=== PATIENT | male | born 1950 | race Caucasian/White ===

== ENCOUNTER 2017-04-08 22:42 | Emergency (ER) | payer MEDICARE, OTHER ==
[~2017-04-08] VITALS: Ht 182.9 cm; Wt 81.6 kg
--- NOTE | 2017-04-08 23:10 | NUR ---
Dr. Stewart at bedside for MSE, awaiting further orders.
[2017-04-08] MEDS ORDERED: FLUORESCEIN SODIUM 1 MG STRIP ONE (23:25)
[2017-04-08] MEDS ORDERED: TETRACAINE HCL 0.5% OPHT DROP 2 ML BOTTLE ONE (23:25)
[2017-04-08] MEDS ORDERED: HYDROCODONE/APAP 5-325MG TABLET PO ONE (23:30)
[2017-04-08] MEDS ORDERED: CIPROFLOXACIN 0.3% OPHT DROP 2.5 ML BOTTLE OP ONE (23:30)
[2017-04-08] MEDS ORDERED: TETRACAINE HCL 0.5% OPHT DROP 2 ML BOTTLE OP ONE (23:45)
[2017-04-08] MEDS ORDERED: FLUORESCEIN SODIUM 1 MG STRIP OP ONE (23:45)
--- NOTE | 2017-04-08 23:50 | NUR ---
Pt stable for discharge per MD. Pt given ACI. Pt verbalized understanding of dc instructions. Pt ambulated out of ER with steady gait and ride home.
[2017-04-08 23:55] VITALS: BP 156/80
[2017-04-09] MEDS ORDERED: CIPROFLOXACIN 0.3% OPHT DROP 2.5 ML BOTTLE ONE
[2017-04-09] MEDS ORDERED: HYDROCODONE/APAP 5-325MG TABLET ONE
== END 2017-04-08 23:56 | disposition home or self-care (01) ==
LOC: ER 22:43
DX: S05.02XA Injury of conjunctiva and corneal abrasion without foreign body, left eye, initial encounter (principal); X58.XXXA Exposure to other specified factors, initial encounter; Y93.89 Activity, other specified; Y92.89 Other specified places as the place of occurrence of the external cause; Y99.8 Other external cause status
CPT/HCPCS: 99283; A4663

== ENCOUNTER 2020-09-20 08:52 | Emergency (ER) | payer OTHER ==
[~2020-09-20] VITALS: Ht 188 cm; Wt 83.9 kg
[2020-09-20] MEDS ORDERED: MUPIROCIN 2% OINT 22 GM TUBE TP ONE (09:15)
[2020-09-20] MEDS ORDERED: SULFAMETH/TRIMETH 800/160 MG TABLET PO ONE (09:15)
[2020-09-20] MEDS ORDERED: SULF1TAB48 PO (09:17)
[2020-09-20] MEDS ORDERED: MUPI22OI2 (09:19)
[2020-09-20] MEDS ORDERED: MUPIROCIN 2% OINT 22 GM TUBE ONE (09:35)
[2020-09-20] MEDS ORDERED: SULFAMETH/TRIMETH 800/160 MG TABLET ONE (09:35)
--- NOTE | 2020-09-20 09:55 | NUR ---
MEDICATION GIVEN ORDERED. OINTMENT APPLIED ON WOUND ORDERED AND COVERED WITH A NON ADHERING STERILE GAUZE. DC, RX AND FOLLOW UP INSTRUCTIONS GIVEN AND EXPLAINED TO PATIENT WHO STATES HE UNDERSTANDS ALL INSTRUCTIONS.
== END 2020-09-20 09:55 | disposition home or self-care (01) ==
LOC: ER 08:52
DX: S90.822A Blister (nonthermal), left foot, initial encounter (principal); L08.9 Local infection of the skin and subcutaneous tissue, unspecified; B95.8 Unspecified staphylococcus as the cause of diseases classified elsewhere; X58.XXXA Exposure to other specified factors, initial encounter; Y92.89 Other specified places as the place of occurrence of the external cause
CPT/HCPCS: A4663